=== PATIENT | male | born 1945 | race Caucasian/White ===

== ENCOUNTER → 2016-10-15 | Outpatient (CLI) | payer MEDICARE ==
[~2016-10-15] MED LIST: CHLORTHALIDONE50 MG PO; DILTIAZEM 24HR360 MG PO; DITROPAN 5 MG TA5 MG PO; FISH OIL 1,2001 EACH PO; FLOMAX 0.4 MG0.4 MG PO; LISINOPRIL20 MG PO; MAGNESIUM250 M1 PO; MULTI COMPLETE1 EACH PO; NOVOLIN N100 UNIT/1 SQ; NOVOLIN R100 UNIT/1 INJ; OXYCODONE HCL15 MG PO; PRAVASTATIN SOD40 MG PO
== END ==
LOC: CT 07:36 → OPSV 07:36 → CT 08:00
DX: Z45.89 Encounter for adjustment and management of other implanted devices (principal); C18.2 Malignant neoplasm of ascending colon; C77.2 Secondary and unspecified malignant neoplasm of intra-abdominal lymph nodes; F17.210 Nicotine dependence, cigarettes, uncomplicated; Z98.890 Other specified postprocedural states
CPT/HCPCS: J1642; J7050; Q9962

== ENCOUNTER → 2017-04-04 | Day surgery (SDC) | payer MEDICARE | END | disposition home or self-care (01) | LOC: OR 06:28 | PROVIDERS: Internal Medicine Gastroenterology | PROC: 0DBB8ZX Excision of Ileum, Via Natural or Artificial Opening Endoscopic, Diagnostic (ICD-10-PCS; 2017-04-04) | PROC: 0DBL8ZX Excision of Transverse Colon, Via Natural or Artificial Opening Endoscopic, Diagnostic (ICD-10-PCS; principal; 2017-04-04 08:00) | DX: Z12.11 Encounter for screening for malignant neoplasm of colon (principal); D12.3 Benign neoplasm of transverse colon; K57.30 Diverticulosis of large intestine without perforation or abscess without bleeding; K64.0 First degree hemorrhoids; I10 Essential (primary) hypertension; E78.5 Hyperlipidemia, unspecified; I25.10 Atherosclerotic heart disease of native coronary artery without angina pectoris; F17.210 Nicotine dependence, cigarettes, uncomplicated; Z85.038 Personal history of other malignant neoplasm of large intestine; Z86.73 Personal history of transient ischemic attack (TIA), and cerebral infarction without residual deficits | CPT/HCPCS: 82962; J7030 ==